=== PATIENT | male | born 1985 | race Caucasian/White ===

== ENCOUNTER 2016-06-22 12:56 | Emergency (ER) | payer MEDICAID, MEDICARE ==
[~2016-06-22] VITALS: Ht 162.6 cm; Wt 61.4 kg
[2016-06-22 13:00] VITALS: Ht 162.6 cm; Wt 61.4 kg
[2016-06-22 13:33] LABS: ADD SCAN DIFF NO
[2016-06-22 13:35] LABS: BASOPHIL # 0.1 10^3/ul (0.0-0.1); BASOPHILS % 0.8 % (0.0-2.0); EOSINOPHILS # 0.1 10^3/ul (0.0-0.5); EOSINOPHILS % 1.8 % (0.0-7.0); HEMATOCRIT 42.8 % (42.0-52.0); HEMOGLOBIN 14.4 g/dl (14.0-18.0); LYMPHOCYTES # 1.5 10^3/ul (0.8-2.9); LYMPHOCYTES % 24.4 % (15.0-51.0); MEAN CORPUSCULAR HEMOGLOBIN 29.7 pg (29.0-33.0); MEAN CORPUSCULAR HGB CONC 33.6 g/dl (32.0-37.0); MEAN CORPUSCULAR VOLUME 88.2 fl (82.0-101.0); MEAN PLATELET VOLUME 10.5 fl (7.4-10.4); MONOCYTE # 0.6 10^3/ul (0.3-0.9); MONOCYTES % 9.6 % (0.0-11.0); NEUTROPHILS % 63.2 % (39.0-77.0); PLATELET COUNT 232 10^3/UL (140-415); RED BLOOD COUNT 4.85 10^6/ul (4.70-6.10); RED CELL DISTRIBUTION WIDTH 13.3 % (11.5-14.5); WHITE BLOOD COUNT 6.3 10^3/ul (4.8-10.8)
[2016-06-22 13:50] LABS: ALBUMIN 4.7 g/dl (3.3-4.9); CHLORIDE 99 mmol/L (97-110)
[2016-06-22 13:51] LABS: POTASSIUM 4.4 mmol/L (3.5-5.1); SODIUM 140 mmol/L (135-144)
[2016-06-22 13:54] LABS: ALANINE AMINOTRANSFERASE 32 IU/L (13-69); ALBUMIN/GLOBULIN RATIO 1.46; ALKALINE PHOSPHATASE 104 IU/L (42-121); ANION GAP 16 (8-16); ASPARTATE AMINO TRANSFERASE 50 IU/L (15-46); BILIRUBIN,INDIRECT 0.5 mg/dl (0-1.1); BILIRUBIN,TOTAL 0.5 mg/dl (0.2-1.3); BLOOD UREA NITROGEN 12 mg/dl (7-20); CALCIUM 9.4 mg/dl (8.4-10.2); CARBON DIOXIDE 29 mmol/L (21-31); GLUCOSE 129 mg/dl (70-220); TOTAL PROTEIN 7.9 g/dl (6.1-8.1)
[2016-06-22 13:56] LABS: ACETAMINOPHEN < 10.0 ug/ml (10.0-30.0); SALICYLATE < 1.0 mg/dl (5.0-30.0)
[2016-06-22] MEDS ORDERED: LORAZEPAM 2 MG INJ IM ONE (14:00)
[2016-06-22] MEDS ORDERED: DIPHENHYDRAMINE 50 MG INJ IM ONE (14:00)
[2016-06-22] MEDS ORDERED: HALOPERIDOL 5 MG INJ IM ONE (14:00)
[2016-06-22 14:24] LABS: ADD UMIC NO; URINE BILIRUBIN (Dip) NEGATIVE (NEGATIVE); URINE BLOOD (Dip) NEGATIVE (NEGATIVE); URINE COLOR LT. YELLOW (YELLOW); URINE GLUCOSE (Dip) NEGATIVE (NEGATIVE); URINE KETONES (Dip) NEGATIVE (NEGATIVE); URINE LEUKOCYTE ESTERASE (Dip) NEGATIVE (NEGATIVE); URINE NITRITE (Dip) NEGATIVE (NEGATIVE); URINE TOTAL PROTEIN (Dip) NEGATIVE (NEGATIVE); URINE UROBILINOGEN (Dip) 0.2 E.U./dL (0.1-1.0)
[2016-06-22 14:51] LABS: BARBITURATES Negative (NEGATIVE); BENZODIAZEPINES Negative (NEGATIVE); CANNABINOIDS Positive (NEGATIVE); COCAINE Negative (NEGATIVE); OPIATES Negative (NEGATIVE)
--- NOTE | 2016-06-22 15:32 | ERA ---
ER Documentation Chief Complaint Date/Time DATE: 06/22/16 TIME: 15:30 Chief Complaint BROUGHT IN VIA EMS AND [employer] DUE HITTING HIMSELF IN THE HEAD WITH HAMMER HPI This 31-year-old male presents to the emergency room for evaluation of abnormal behavior. This patient I did hit himself in the head with a hammer. I am unable to ascertain a history from this patient secondary to his aggression and refusal to answer questions. This patient was in custody by [employer] and was brought in for evaluation of his symptoms. The patient does have a psychiatric history but I am unable to again ascertain further information per ROS All systems reviewed and are negative except as per history of present illness. Medications Home Meds Unable to Obtain Active Prescriptions or Reported Meds Allergies Allergies: Coded Allergies: Unknown: Unable to obtain (Unverified , 10/03/15) PMhx/Soc Medical and Surgical Hx: Unable to obtain Hx Alcohol Use: No Hx Substance Use: Yes (UNKNOWN ) Hx Tobacco Use: Yes Smoking Status: Unknown if ever smoked Physical Exam Vitals Vital Signs Date Time Temp Pulse Resp B/P Pulse Ox O2 Delivery O2 Flow Rate FiO2 06/22/16 15:00 97.1 78 18 125/74 99 Room Air 06/22/16 13:00 97.9 74 18 124/81 98 Physical Exam Const: Patient yelling in verbally aggressive Head: Atraumatic Eyes: Normal Conjunctiva ENT: Normal External Ears, Nose and Mouth. Neck: Full range of motion..~ No meningismus. Resp: Clear to auscultation bilaterally Cardio: Regular rate and rhythm, no murmurs Abd: Soft, non tender, non distended. Normal bowel sounds Skin: No petechiae or rashes Back: No midline or flank tenderness Ext: No cyanosis, or edema Neur: Awake and alert Psych: Normal Mood and Affect Result Diagram: 06/22/16 1325 06/22/16 1325 Results 24 hrs Laboratory Tests Test 06/22/16 13:25 06/22/16 14:00 White Blood Count 6.310^3/ul Red Blood Count 4.8510^6/ul Hemoglobin 14.4g/dl Hematocrit 42.8% Mean Corpuscular Volume 88.2fl Mean Corpuscular Hemoglobin 29.7pg Mean Corpuscular Hemoglobin Concent 33.6g/dl Red Cell Distribution Width 13.3% Platelet Count 46580^3/UL Mean Platelet Volume 10.5fl Neutrophils % 63.2% Lymphocytes % 24.4% Monocytes % 9.6% Eosinophils % 1.8% Basophils % 0.8% Nucleated Red Blood Cells % 0.0/100WBC Neutrophils # 4.010^3/ul Lymphocytes # 1.510^3/ul Monocytes # 0.610^3/ul Eosinophils # 0.110^3/ul Basophils # 0.110^3/ul Nucleated Red Blood Cells # 0.010^3/ul Sodium Level 140mmol/L Potassium Level 4.4mmol/L Chloride Level 99mmol/L Carbon Dioxide Level 29mmol/L Anion Gap 16 Blood Urea Nitrogen 12mg/dl Creatinine 0.80mg/dl Glucose Level 129mg/dl Calcium Level 9.4mg/dl Total Bilirubin 0.5mg/dl Direct Bilirubin 0.00mg/dl Indirect Bilirubin 0.5mg/dl Aspartate Amino Transf (AST/SGOT) 50IU/L Alanine Aminotransferase (ALT/SGPT) 32IU/L Alkaline Phosphatase 104IU/L Total Protein 7.9g/dl Albumin 4.7g/dl Globulin 3.20g/dl Albumin/Globulin Ratio 1.46 Salicylates Level < 1.0mg/dl Acetaminophen Level < 10.0ug/ml Ethyl Alcohol Level 11.0mg/dl Urine Color LT. YELLOW Urine Clarity CLEAR Urine pH 6.0 Urine Specific [place] 1.020 Urine Ketones NEGATIVE Urine Nitrite NEGATIVE Urine Bilirubin NEGATIVE Urine Urobilinogen 0.2 E.U./dL Urine Leukocyte Esterase NEGATIVE Urine Hemoglobin NEGATIVE Urine Glucose NEGATIVE% Urine Total Protein NEGATIVE Urine Opiates Screen Negative Urine Barbiturates Negative Urine Amphetamines Screen Negative Urine Benzodiazepines Screen Negative Urine Cocaine Screen Negative Urine Cannabinoids Positive Current Medications Medications (Trade) Dose Ordered Sig/Whitney Route PRN Reason Start Time Stop Time Status Last Admin Dose Admin Haloperidol (Haldol) 5 mg ONCE ONCE IM 06/22/16 14:00 06/22/16 14:01 DC 06/22/16 13:59 Lorazepam (Ativan) 2 mg ONCE ONCE IM 06/22/16 14:00 06/22/16 14:01 DC 06/22/16 13:58 Diphenhydramine HCl (Benadryl) 50 mg ONCE ONCE IM 4/9/17 14:00 06/22/16 14:01 DC 06/22/16 13:59 Procedures/MDM This 31-year-old male presents to the ER for evaluation of self injury. This patient was sitting himself in the head with a hammer. No loss of consciousness. When I evaluated this patient he was aggressive verbally, and had to be sedated with Haldol, Ativan, and Benadryl. Lab was within normal limits and he will be evaluated by tele-psych when he is clinically stable. Patient presents with symptomatology consistent with the decompensation of previously diagnosed psychiatric disease. Based on history, physical exam and appropriate lab tests, I appreciate no evidence of significant life-threatening injury or illness that includes a psychiatric hospitalization. Patient is thus "medically clear" for psychiatric admission. In regards to the psychiatric complaints, this patient has clear evidence of high risk psychiatric symptoms with significant risk for decompensation, thus requiring admission to the hospital for stabilization. Departure Diagnosis: Primary Impression: Suicide threat or attempt Condition: Stable ELIZABETH CROCKETT DO Jun 22, 2016 15:32
--- NOTE | 2016-06-22 16:36 | RADRPT ---
PROCEDURE: CT Brain without. CLINICAL INDICATION: Trauma, pain. TECHNIQUE: A CT of the brain was performed on multidetector high-resolution CT scanner utilizing a xial sections from the skull base through the vertex without contrast. The scan was reviewed in sof t tissue brain and high frequency resolution bone algorithm windows. Images were reviewed on a high -resolution PACS workstation. One or more the following does reduction techniques were utilized: Aut omated exposure control, adjustment of the mA/ or kV according to patient's size, or use of iterativ e reconstruction technique. The exam CTDI = 42.69 mGy and the DLP = 720.23 mGy-cm. COMPARISON: None available. FINDINGS: The ventricles and sulci are age-appropriate. There is no intracranial hemorrhage, mass effect or mi dline shift. No abnormal intra-axial or extra-axial fluid collections are seen. The callahan/white ruy er differentiation is preserved. No acute skull abnormality is noted. The visualized paranasal sinus es are essentially clear. Mild frontal scalp swelling is noted without underlying skull fracture. IMPRESSION: 1. No acute intracranial hemorrhage, transcortical infarction or mass effect. 2. Mild frontal scalp swelling is noted without underlying skull fracture. RPTAT: HFN .J Carols Connelly MD, MD Date Time Electronically viewed and signed by .J Carlos Connelly MD, MD on 06/22/2016 16:36 .N/
[2016-06-23] MEDS ORDERED: LORAZEPAM 2 MG INJ IM ONE ×2 (02:00→21:00)
[2016-06-23] MEDS ORDERED: HALOPERIDOL 5 MG INJ IM ONE ×3 (02:00→21:00)
[2016-06-23] MEDS ORDERED: DIPHENHYDRAMINE 50 MG INJ IM ONE (02:00)
[2016-06-23] MEDS ORDERED: LORAZEPAM 1 MG TAB PO ONE (20:30)
[2016-06-23] MEDS ORDERED: LORAZEPAM 2 MG INJ ONE (20:35)
[2016-06-23 21:00] VITALS: BP 128/70; PULSE 86; RESP 18; TEMP 98
== END 2016-06-23 21:01 ==
LOC: E/R 12:56
DX: T14.91 Suicide attempt (principal); R51 Headache; Z87.891 Personal history of nicotine dependence
CPT/HCPCS: 70450; 80053; 80306; 80307; 81003; 85025; J1200; J1630; J2060; 36415; 96372